=== PATIENT | male | born 1965 | race Caucasian/White ===

== ENCOUNTER → 2018-05-13 | Outpatient (CLI) | payer BC ==
[~2018-05-13] VITALS: Ht 182.9 cm; Wt 84.4 kg
[~2018-05-13] MED LIST: CELEXA20 MG PO; CLONIDINE HCL0.1 MG PO; COLACE100 MG PO; HYDROCODON-ACE1 EAC9 PO; MIRALAX17 GM PO; PERCOCET 5/31 TABLET PO; PROTONIX40 MG PO; SIMVASTATIN20 MG PO
== END | disposition home or self-care (01) ==
LOC: AMB 06:53
DX: K29.70 Gastritis, unspecified, without bleeding (principal); K21.0 Gastro-esophageal reflux disease with esophagitis; D12.8 Benign neoplasm of rectum; K63.5 Polyp of colon; K64.8 Other hemorrhoids; Z79.82 Long term (current) use of aspirin; F17.200 Nicotine dependence, unspecified, uncomplicated
CPT/HCPCS: 88305; 88342 TC; J3010